=== PATIENT | male | born 1965 | race Caucasian/White ===

== ENCOUNTER 2022-12-25 11:40 | Inpatient (IN) | payer MEDICAID, SELFPAY ==
[2022-12-25 11:50] VITALS: BP 127/78; PULSE 79; RESP 16; TEMP 37.2; O2SAT 99
[2022-12-25 11:51] VITALS: BMI 25.7
[2022-12-25] MEDS: nicotine 4 mg lozenge MUCOUS MEM ×4 (12:27→20:00)
[2022-12-25 14:00] VITALS: BP 130/80; PULSE 81; RESP 16; TEMP 37.2; O2SAT 99
[2022-12-25] MEDS: hyDROXYzine 25 mg Capsule 50 MG PO (20:00)
[2022-12-25 20:05] VITALS: BP 148/87; PULSE 76; RESP 18; TEMP 36.9; O2SAT 98
[2022-12-26 06:00] VITALS: BP 143/88; PULSE 70; RESP 16; O2SAT 98
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
[2022-12-26] MEDS: nicotine 4 mg lozenge MUCOUS MEM ×6 (08:35→20:12)
[2022-12-26] MEDS: thiamine 100 mg Tablet PO (08:36)
[2022-12-26] MEDS: meloxicam 7.5 mg tablet 15 MG PO (08:36)
[2022-12-26] MEDS: multivitamin therapeutic Tablet 1 TAB PO (08:36)
[2022-12-26] MEDS: folic acid 1 mg Tablet PO (08:36)
[2022-12-26] MEDS: acetaminophen 325 mg Tablet 650 MG PO (09:40)
[2022-12-26] MEDS: hyDROXYzine 25 mg Capsule 50 MG PO (09:40)
--- NOTE | 2022-12-26 09:41 | PC.NURSE ---
anxiety pt given vistral for his anxiety at a 5.
[2022-12-26] MEDS: escitalopram 10 mg Tablet PO (10:15)
[2022-12-26] MEDS: ibuprofen 600 mg Tablet PO (12:23)
[2022-12-26 13:03] VITALS: BP 124/88; PULSE 64; RESP 18; TEMP 37.3; O2SAT 99
--- NOTE | 2022-12-26 16:26 | PC.NURSE ---
Outside Pt went outside with group in closed in courtyard.
[2022-12-26 20:01] VITALS: BP 127/86; PULSE 76; RESP 18; TEMP 37.1; O2SAT 98
[2022-12-26] MEDS: trazodone 50 mg Tablet PO (20:12)
[2022-12-27 06:00] VITALS: BP 143/85; PULSE 65; RESP 16; O2SAT 97
[2022-12-27] MEDS: nicotine 4 mg lozenge MUCOUS MEM ×6 (06:14→17:44)
[2022-12-27] MEDS: acetaminophen 325 mg Tablet 650 MG PO ×2 (06:14→11:33)
[2022-12-27] MEDS: folic acid 1 mg Tablet PO (08:39)
[2022-12-27] MEDS: multivitamin therapeutic Tablet 1 TAB PO (08:39)
[2022-12-27] MEDS: thiamine 100 mg Tablet PO (08:39)
[2022-12-27] MEDS: escitalopram 10 mg Tablet PO (08:39)
[2022-12-27] MEDS: meloxicam 7.5 mg tablet 15 MG PO (08:39)
[2022-12-27] MEDS: ibuprofen 600 mg Tablet PO (08:40)
[2022-12-27 12:27] VITALS: BP 123/85; PULSE 67; RESP 18; TEMP 36.7; O2SAT 98
--- NOTE | 2022-12-27 13:35 | W.PM.NPUPNS ---
Subjective NPU Subjective: Patient is a 57-year-old white male with a history of PTSD generalized anxiety disorder and depression along with alcohol dependence admitted with suicidal ideation. The patient reports no side effects from his medications. He had reported a significant problem with alcohol abuse. He reported that he had a past history of withdrawal symptoms. He had reported significant anxiety and often reported flashbacks regarding his trauma. He reported that he had been feeling hopeless and worthless over the past few weeks. He had reported sleep continuity disruption. He was agreeable to considering inpatient substance abuse treatment for his alcoholism. He had reported of having problems with managing chronic worry. He had reported no side effects in the past from taking oral naltrexone but stated that he had never been on the monthly shot of Vivitrol for treatment of alcohol dependence. Mental Status Exam MSE Comments: This is a white male, in hospital scrubs, with adequate grooming and eye contact. No abnormal movements. Cooperative with exam in mild acute distress. Speech was normal rate and volume. Mood described as depressed. affect was mood congruent and restricted in range. Thought process was organized. Thought content: patient endorses suicidal ideation, denies current homicidal ideation; there were no delusions reported or noted; patient denied any auditory or visual hallucinations. Attention, concentration, and memory appeared intact, but none were formally tested. Alert and oriented times three. Insight and judgment appear fair. Impulse control is fair. Vitals/I&O/Wt Last Vital Signs Temp 98.0 F 12/27/22 12:27 Pulse 67 12/27/22 12:27 Resp 18 12/27/22 12:27 BP 123/85 12/27/22 12:27 Pulse Ox 98 12/27/22 12:27 O2 Del Method Room Air 12/27/22 06:00 Weight last 48 hrs Weight 87.77 kg A&P Assessment and plan (1) PTSD (post-traumatic stress disorder): (2) Major depressive disorder, recurrent: (3) MIGEL (generalized anxiety disorder): (4) Alcohol use disorder, severe, dependence: Plan 1. ?Encourage individual, group and milieu therapy. 2. Recommend sober living treatment at the highest level of care to which the patient is willing to commit. 3. Continue q-15 minute checks for safety 4. Add seroquel 50mg at night. Continue Lexapro 10mg daily. Involuntary Hold Information 96 Hour Hold: 96 Hour Involuntary Admission: No Attestations NPU Medical Necessity Statement*: Inpatient hospitalization is medically necessary and deemed to be the clinically appropriate intervention at this time. We will monitor and initiate medications while making changes as indicated. The patient's likely length of stay is 3 to 5 days. Other Attestations: Other Attestations: Inpatient hospitalization is medically necessary and the clinically appropriate intervention, at this time. We will monitor medications and make changes as indicated. Patient will be in the hospital for over two midnights. Likely length of stay is three to five days. Coding Level of Care Code Acute Code for g Fwd Diagnoses PTSD (post-traumatic stress disorder) F43.10 Major depressive disorder, recurrent F33.9 MIGEL (generalized anxiety disorder) F41.1 Alcohol use disorder, severe, dependence F10.20
[2022-12-27 19:47] VITALS: BP 151/89; PULSE 80; RESP 18; TEMP 36.9; O2SAT 98
[2022-12-27] MEDS: quetiapine 25 mg Tablet 50 MG PO (19:50)
[2022-12-27] MEDS: nicotine 2 mg Gum BUCCAL (19:50)
[2022-12-27] MEDS: trazodone 50 mg Tablet PO (19:50)
[2022-12-28 06:00] VITALS: BP 125/82; PULSE 59; RESP 18; O2SAT 97
[2022-12-28] MEDS: nicotine 2 mg Gum BUCCAL (06:41)
[2022-12-28] MEDS: folic acid 1 mg Tablet PO (07:59)
[2022-12-28] MEDS: escitalopram 10 mg Tablet PO (07:59)
[2022-12-28] MEDS: thiamine 100 mg Tablet PO (07:59)
[2022-12-28] MEDS: meloxicam 7.5 mg tablet 15 MG PO (07:59)
[2022-12-28] MEDS: multivitamin therapeutic Tablet 1 TAB PO (07:59)
[2022-12-28] MEDS: nicotine 4 mg lozenge MUCOUS MEM ×8 (07:59→22:05)
[2022-12-28] MEDS: naltrexone hcl 50 mg Tablet PO (13:10)
--- NOTE | 2022-12-28 13:59 | PC.NURSE ---
PT REQUEST MORE TO EAT, I'M NOT GETTING ENOUGH FOOD, NEW ORDERS RECEIVED FOR DOUBLE PORTIONS WITH MEALS. PT EDUCATED ON NEW ORDERS, VERBALIZED UNDERSTANDING.
[2022-12-28 14:00] VITALS: BP 122/82; PULSE 77; RESP 16; TEMP 37.2; O2SAT 98
--- NOTE | 2022-12-28 15:50 | P.NPUPN_ITS ---
Subjective NPU Subjective: Patient is a 57-year-old white male with a history of PTSD ,generalized anxiety disorder,and depression along with alcohol dependence admitted with suicidal ideation. The patient reported continued depression and anxiety. He had reported some improvement in sleep. He reported that he needed help with his continuous drinking. He had reported that he was also looking for a potential correction. He had reported that his suicidal thoughts were diminishing. He had reported some difficulties with being homeless is stating that his drinking had contributed to his problems. Mental Status Exam MSE Comments: This is a white male, in hospital scrubs, with adequate grooming and eye contact. No abnormal movements. Cooperative with exam in mild acute distress. Speech was normal in rate and volume. Mood described as depressed. His affect was mood congruent and restricted in range. Thought process was linear and organized. Thought content: patient endorses fleeting suicidal ideation, denies current homicidal ideation; there were no delusions reported or noted; patient denied any auditory or visual hallucinations. Attention, concentration, and memory appeared intact, but none were formally tested. He was alert and oriented times three. Insight and judgment appear fair. Impulse control is fair. Vitals/I&O/Wt Last Vital Signs Temp 99 F 12/28/22 14:00 Pulse 77 12/28/22 14:00 Resp 16 12/28/22 14:00 BP 122/82 12/28/22 14:00 Pulse Ox 98 12/28/22 14:00 O2 Del Method Room Air 12/28/22 14:00 Weight last 48 hrs Weight 87.77 kg A&P Assessment and plan (1) PTSD (post-traumatic stress disorder): (2) Major depressive disorder, recurrent: (3) MIGEL (generalized anxiety disorder): (4) Alcohol use disorder, severe, dependence: Plan 1. ?Encourage individual, group and milieu therapy. 2. Recommend sober living treatment at the highest level of care to which the patient is willing to commit. 3. Continue q-15 minute checks for safety 4. Increase Seroquel to 100 mg at night. Continue Lexapro 10mg daily. Trial of naltrexone oral 50 mg daily with plan for the patient to receive Vivitrol IM to target alcohol dependence. Involuntary Hold Information 96 Hour Hold: 96 Hour Involuntary Admission: No Attestations NPU Medical Necessity Statement*: Inpatient hospitalization is medically necessary and deemed to be the clinically appropriate intervention at this time. We will monitor and initiate medications while making changes as indicated. The patient's likely length of stay is 3 to 5 days. Other Attestations: Other Attestations: Inpatient hospitalization is medically necessary and the clinically appropriate intervention, at this time. We will monitor medications and make changes as indicated. Patient will be in the hospital for over two midnights. Likely length of stay is three to five days. Coding Level of Care Code Acute Code for [facility] Fwd Diagnoses PTSD (post-traumatic stress disorder) F43.10 Major depressive disorder, recurrent F33.9 MIGEL (generalized anxiety disorder) F41.1 Alcohol use disorder, severe, dependence F10.20
[2022-12-28] MEDS: trazodone 50 mg Tablet PO (20:04)
[2022-12-28] MEDS: acetaminophen 325 mg Tablet 650 MG PO (20:04)
[2022-12-28] MEDS: quetiapine 100 mg Tablet PO (20:04)
[2022-12-28 20:06] VITALS: BP 119/75; PULSE 67; RESP 18; TEMP 36.8; O2SAT 97
[2022-12-29 06:00] VITALS: BP 116/78; PULSE 72; RESP 16; TEMP 36.4; O2SAT 98
[2022-12-29] MEDS: nicotine 4 mg lozenge MUCOUS MEM ×8 (06:29→21:07)
[2022-12-29] MEDS: meloxicam 7.5 mg tablet 15 MG PO (08:11)
[2022-12-29] MEDS: naltrexone hcl 50 mg Tablet PO (08:11)
[2022-12-29] MEDS: multivitamin therapeutic Tablet 1 TAB PO (08:11)
[2022-12-29] MEDS: escitalopram 10 mg Tablet PO (08:11)
[2022-12-29] MEDS: thiamine 100 mg Tablet PO (08:11)
[2022-12-29] MEDS: folic acid 1 mg Tablet PO (08:11)
[2022-12-29 14:00] VITALS: BP 146/84; PULSE 91; RESP 16; TEMP 36.8; O2SAT 97
--- NOTE | 2022-12-29 15:50 | W.PM.NPUPNS ---
Subjective NPU Subjective: Patient is a 57-year-old white male with a history of PTSD ,generalized anxiety disorder,and depression along with alcohol dependence admitted with suicidal ideation. The patient received his Vivitrol shot today. He had continue to report some cravings for alcohol. He had reported depression and continued to report concerns of being homeless. Patient had reported repeated attempts at cutting back on alcohol had been largely unsuccessful and continued report of high tolerance at this time. He had not endorsed any significant withdrawal symptoms today. He had reported improved sleep on the Seroquel but reported that he had been groggy. The patient had reported feeling anxious at times. She reported diminished appetite and continued to endorse having problems with managing his chronic worry. Mental Status Exam MSE Comments: This is a white male, in hospital scrubs, with adequate grooming and eye contact. No abnormal movements. Cooperative with exam in mild acute distress. Speech was normal in rate and volume. Mood described as okay. His affect flat. Thought process was linear and organized. Thought content: patient endorses fleeting suicidal ideation, denies current homicidal ideation; there were no delusions reported or noted; patient denied any auditory or visual hallucinations. Attention, concentration, and memory appeared intact, but none were formally tested. He was alert and oriented times three. Insight and judgment appear fair. Impulse control is fair. Vitals/I&O/Wt Last Vital Signs Temp 98.3 F 12/29/22 14:00 Pulse 91 12/29/22 14:00 Resp 16 12/29/22 14:00 BP 146/84 12/29/22 14:00 Pulse Ox 97 12/29/22 14:00 O2 Del Method Room Air 12/29/22 14:00 A&P Assessment and plan (1) PTSD (post-traumatic stress disorder): (2) Major depressive disorder, recurrent: (3) MIGEL (generalized anxiety disorder): (4) Alcohol use disorder, severe, dependence: Plan 1. ?Encourage individual, group and milieu therapy. 2. Recommend sober living treatment at the highest level of care to which the patient is willing to commit. 3. Continue q-15 minute checks for safety 4. Increase Seroquel to 150 mg at night. Continue Lexapro 10mg daily. Vivitrol IM given today, next dose in 28 days for ETOH abuse. Involuntary Hold Information 96 Hour Hold: 96 Hour Involuntary Admission: No Attestations NPU Medical Necessity Statement*: Inpatient hospitalization is medically necessary and deemed to be the clinically appropriate intervention at this time. We will monitor and initiate medications while making changes as indicated. The patient's likely length of stay is 3 to 5 days. Other Attestations: Other Attestations: Inpatient hospitalization is medically necessary and the clinically appropriate intervention, at this time. We will monitor medications and make changes as indicated. Patient will be in the hospital for over two midnights. Likely length of stay is three to five days. Coding Level of Care Code Acute Code for g Fwd Diagnoses PTSD (post-traumatic stress disorder) F43.10 Major depressive disorder, recurrent F33.9 MIGEL (generalized anxiety disorder) F41.1 Alcohol use disorder, severe, dependence F10.20
[2022-12-29] MEDS: hyDROXYzine 25 mg Capsule 50 MG PO (16:39)
[2022-12-29] MEDS: acetaminophen 325 mg Tablet 650 MG PO (16:39)
[2022-12-29] MEDS: quetiapine 100 mg Tablet 150 MG PO (19:10)
[2022-12-29] MEDS: ibuprofen 600 mg Tablet PO (19:10)
[2022-12-29] MEDS: trazodone 50 mg Tablet PO (19:10)
[2022-12-29 20:23] VITALS: BP 116/74; PULSE 67; RESP 16; TEMP 37.1; O2SAT 97
[2022-12-30 06:00] VITALS: BP 134/88; PULSE 64; RESP 15; TEMP 36.6; O2SAT 97
[2022-12-30] MEDS: nicotine 4 mg lozenge MUCOUS MEM ×9 (06:27→22:25)
[2022-12-30] MEDS: escitalopram 10 mg Tablet PO (08:46)
[2022-12-30] MEDS: meloxicam 7.5 mg tablet 15 MG PO (08:46)
[2022-12-30] MEDS: thiamine 100 mg Tablet PO (08:46)
[2022-12-30] MEDS: multivitamin therapeutic Tablet 1 TAB PO (08:47)
[2022-12-30] MEDS: folic acid 1 mg Tablet PO (08:47)
[2022-12-30 14:00] VITALS: BP 113/78; PULSE 72; RESP 18; TEMP 36.6; O2SAT 98
[2022-12-30] MEDS: acetaminophen 325 mg Tablet 650 MG PO (14:06)
[2022-12-30] MEDS: OLANZapine 5 mg ODT PO (14:07)
--- NOTE | 2022-12-30 14:51 | P.NPUPN_ITS ---
Subjective NPU Subjective: Patient is a 57-year-old white male with a history of PTSD ,generalized anxiety disorder,and major depressive disorder along with alcohol dependence admitted with suicidal ideation. The patient reports that he has been feeling better but still reports depression. He does report low energy and difficulties getting out of bed. He had endorsed feeling tired. He had reported some improved sleep. He had reported that his cravings for alcohol had been less and and reported no side effects from the Vivitrol. Patient had considered placement for inpatient drug and alcohol treatment and remain hopeful of this as a possibility. He had also reported chronic difficulties with managing worry often complaining of tension. He reported often being irritated and stated that he often felt that his worry was out of control. He had endorsed a history of avoidance and nightmares and flashbacks regarding trauma previously suffered. He had reported considerable isolation over the last few years and stated that he would like to consider working again if it was possible. Mental Status Exam MSE Comments: This is a white male, in hospital scrubs, with adequate grooming and eye contact. No abnormal movements. Cooperative with exam in mild acute distress. Speech was normal in rate and volume. Mood described as a little better. His affect remained restricted. Thought process was linear and organized. Thought content: patient endorses no suicidal ideation, denies current homicidal ideation; there were no delusions reported or noted; patient denied any auditory or visual hallucinations. Attention, concentration, and memory appeared intact, but none were formally tested. He was alert and oriented times three. Insight and judgment appear fair. Impulse control is fair. Vitals/I&O/Wt Last Vital Signs Temp 97.8 F 12/30/22 06:00 Pulse 64 12/30/22 06:00 Resp 15 12/30/22 06:00 BP 134/88 12/30/22 06:00 Pulse Ox 97 12/30/22 06:00 O2 Del Method Room Air 12/30/22 06:00 A&P Assessment and plan (1) PTSD (post-traumatic stress disorder): (2) Major depressive disorder, recurrent: (3) MIGEL (generalized anxiety disorder): (4) Alcohol use disorder, severe, dependence: Plan 1. ?Encourage individual, group and milieu therapy. 2. Recommend sober living treatment at the highest level of care to which the patient is willing to commit. 3. Continue q-15 minute checks for safety 4. Increase Seroquel to 150 mg at night. Increase Lexapro to 20mg daily. Vivitrol IM due date in 27 days (given on 12/29/22) Involuntary Hold Information 96 Hour Hold: 96 Hour Involuntary Admission: No Attestations NPU Medical Necessity Statement*: Inpatient hospitalization is medically necessary and deemed to be the clinically is likely length of stay is 4 to 6 days. We will monitor and adjust medications accordingly. Other Attestations: Other Attestations: Inpatient hospitalization is medically necessary and the clinically appropriate intervention, at this time. We will monitor medications and make changes as indicated. Patient will be in the hospital for over two midnights. Likely length of stay is three to five days. Coding Level of Care Code Acute Code for [facility] Fwd Diagnoses PTSD (post-traumatic stress disorder) F43.10 Major depressive disorder, recurrent F33.9 MIGEL (generalized anxiety disorder) F41.1 Alcohol use disorder, severe, dependence F10.20
[2022-12-30 20:00] VITALS: BP 114/64; PULSE 78; RESP 16; TEMP 36.5; O2SAT 96
[2022-12-30] MEDS: quetiapine 100 mg Tablet 150 MG PO (20:18)
[2022-12-31 06:00] VITALS: BP 141/87; PULSE 65; RESP 18; TEMP 36.6; O2SAT 97
[2022-12-31] MEDS: nicotine 4 mg lozenge MUCOUS MEM ×8 (06:18→21:21)
[2022-12-31] MEDS: meloxicam 7.5 mg tablet 15 MG PO (08:29)
[2022-12-31] MEDS: folic acid 1 mg Tablet PO (08:30)
[2022-12-31] MEDS: escitalopram 10 mg Tablet 20 MG PO (08:30)
[2022-12-31] MEDS: multivitamin therapeutic Tablet 1 TAB PO (08:30)
[2022-12-31] MEDS: thiamine 100 mg Tablet PO (08:30)
[2022-12-31 14:00] VITALS: BP 109/77; PULSE 69; RESP 14; TEMP 36.8; O2SAT 97
[2022-12-31] MEDS: OLANZapine 5 mg ODT PO (14:24)
--- NOTE | 2022-12-31 15:39 | W.PM.NPUPNS ---
Subjective NPU Subjective: Patient is a 57-year-old white male with a history of PTSD ,generalized anxiety disorder,and major depressive disorder along with alcohol dependence admitted with suicidal ideation. The patient reported no side effects from his Lexapro. He reported some improved sleep. He had reported feeling tired at times. He had expressed desire to consider inpatient rehabilitation. Patient was informed that the likely rehabilitation facilities had a long waiting list at this time. He had reported continued depression but stated that he was starting to feel a little better. He had endorsed some flashbacks regarding trauma. He had remained somewhat isolative on the milieu. He had stated that he was not having cravings for alcohol today. He had no evidence of withdrawal symptoms reported. Patient had continued to appear isolative on the milieu. Mental Status Exam MSE Comments: This is a white male, in hospital scrubs, with adequate grooming and eye contact. No abnormal involuntary motor movements were appreciated. He was cooperative with exam in mild acute distress. Speech was normal in rate rhythm and volume. Mood described as okay. His affect remained restricted in range. Thought process was linear and organized. Thought content: patient endorses no suicidal ideation, denies current homicidal ideation; there were no delusions reported or noted; patient denied any auditory or visual hallucinations. Attention, concentration, and memory appeared intact, but none were formally tested. He was alert and oriented times three. Insight was improving and judgment appear fair. Impulse control is improving. Vitals/I&O/Wt Last Vital Signs Temp 98.2 F 12/31/22 14:00 Pulse 69 12/31/22 14:00 Resp 14 12/31/22 14:00 BP 109/77 12/31/22 14:00 Pulse Ox 97 12/31/22 14:00 O2 Del Method Room Air 12/31/22 06:00 A&P Assessment and plan (1) PTSD (post-traumatic stress disorder): (2) Major depressive disorder, recurrent: (3) MIGEL (generalized anxiety disorder): (4) Alcohol use disorder, severe, dependence: Plan 1. ?Encourage individual, group and milieu therapy. 2. Recommend sober living treatment at the highest level of care to which the patient is willing to commit. 3. Continue q-15 minute checks for safety 4. Increase Seroquel to 200 mg at night. Continue Lexapro to 20mg daily. Vivitrol IM due date 01/26/23. Involuntary Hold Information 96 Hour Hold: 96 Hour Involuntary Admission: No Attestations NPU Medical Necessity Statement*: Inpatient hospitalization is medically necessary and deemed to be the clinically is likely length of stay is 4 to 6 days. We will monitor and adjust medications accordingly. Other Attestations: Other Attestations: Inpatient hospitalization is medically necessary and the clinically appropriate intervention, at this time. We will monitor medications and make changes as indicated. Patient will be in the hospital for over two midnights. Likely length of stay is three to five days. Coding Level of Care Code Acute Code for Chg Fwd Diagnoses PTSD (post-traumatic stress disorder) F43.10 Major depressive disorder, recurrent F33.9 MIGEL (generalized anxiety disorder) F41.1 Alcohol use disorder, severe, dependence F10.20
[2022-12-31 19:49] VITALS: BP 134/63; PULSE 60; RESP 16; TEMP 36.5; O2SAT 98
[2022-12-31] MEDS: quetiapine 100 mg Tablet 200 MG PO (20:01)
[2022-12-31] MEDS: trazodone 50 mg Tablet PO (21:45)
[2023-01-01] MEDS: acetaminophen 325 mg Tablet 650 MG PO (04:35)
[2023-01-01 06:00] VITALS: BP 121/79; PULSE 78; RESP 17; TEMP 36.4; O2SAT 98
[2023-01-01] MEDS: nicotine 4 mg lozenge MUCOUS MEM ×5 (06:22→14:00)
[2023-01-01] MEDS: meloxicam 7.5 mg tablet 15 MG PO (08:42)
[2023-01-01] MEDS: thiamine 100 mg Tablet PO (08:42)
[2023-01-01] MEDS: escitalopram 10 mg Tablet 20 MG PO (08:42)
[2023-01-01] MEDS: multivitamin therapeutic Tablet 1 TAB PO (08:43)
[2023-01-01] MEDS: folic acid 1 mg Tablet PO (08:43)
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
[2023-01-01 12:46] VITALS: BP 121/79; PULSE 78; RESP 17; TEMP 36.4; O2SAT 98
[2023-01-01 14:00] VITALS: BP 114/75; PULSE 76; RESP 16; TEMP 37.1; O2SAT 97
[2023-01-01] MEDS: ibuprofen 600 mg Tablet PO (14:00)
[2023-01-01] MEDS: OLANZapine 5 mg ODT PO (15:04)
== END 2023-01-01 15:40 | disposition home or self-care (01) | DRG 885 ==
PROVIDERS: Admitting Provider Psychiatry & Neurology Psychiatry; Visit Provider Psychiatry & Neurology Psychiatry
DX: F33.9 Major depressive disorder, recurrent, unspecified (principal); R45.851 Suicidal ideations; Z59.00 Homelessness unspecified; Z91.128 Patient's intentional underdosing of medication regimen for other reason; F17.220 Nicotine dependence, chewing tobacco, uncomplicated; F41.1 Generalized anxiety disorder; F43.10 Post-traumatic stress disorder, unspecified; F10.20 Alcohol dependence, uncomplicated
CPT/HCPCS: 96372; 97150; 97165